=== PATIENT | male | born 1935 | race Caucasian/White ===

== ENCOUNTER 2017-05-05 13:26 | Inpatient (IN) | payer MEDICARE, BC ==
[~2017-05-05] VITALS: Ht 170.2 cm; Wt 69.6 kg
--- NOTE | ~2017-05-05 | HP ---
ADMIT: 05/05/2017 RM/LOC: 3 [facility] MR#: [id number] [address] [place] [id number] MEY CORTEZ [address] [facility] [address] [place] [address] History and Physical SEX: M AGE: 81 : 1935 DATE OF SERVICE: CHIEF COMPLAINT: Left humerus fracture. HISTORY OF PRESENT ILLNESS: Patient is an 81-year-old male who was transferred to [place] with a left pathologic humerus fracture. He is an 81- year-old male, he has been having some intermittent left arm pain with weightlifting. Today, he was actually wringing out some towels, felt a snap in the left arm. He went to the ER, was found to have a left midshaft humerus fracture. No other history of trauma. He was sent here for definitive care and treatment. He has history of some melanoma on his face, but no other known cancers. He does take Eliquis for an anticoagulant, has some underlying diabetes. PAST MEDICAL HISTORY: Include hypercholesterolemia, hypothyroidism, diabetes. MEDICATIONS: Include: 1. Hydrochlorothiazide. 2. Lovastatin. 3. Omeprazole. 4. Potassium. 5. Amlodipine. 6. Calcium. 7. Vitamin B12. 8. Eliquis. 9. Glyburide. ALLERGIES: NONE. SOCIAL HISTORY: Lives at home. REVIEW OF SYSTEMS: Negative. PHYSICAL EXAMINATION: GENERAL: Healthy-appearing male, he has minimal swelling in the left midshaft humeral area. His radial nerve was presently intact. Good pulses in the arm. No pain in the shoulder, elbow, or forearm. No pain in the right upper extremity. No pain in the pelvis or lower extremity ADMIT: 05/05/2017 RM/LOC: 3 [facility] MR#: [id number] [address] [facility] [address] [place], [place] [address] MEY CORTEZ [address] [facility] [address] [place] [address] History and Physical SEX: M AGE: 81 : 1935 with weight bearing. No other abnormalities. DIAGNOSTIC DATA: X-rays; AP, lateral, shows a midshaft humerus fracture with centralized lytic lesion eroding through the cortex. IMPRESSION: Left pathologic midshaft humerus fracture. PLAN: At this point, he is on Eliquis. We have to hold his Eliquis. We need to do cancer workup. Primary care seen. For now, we will get a whole body bone scan to rule out any other type of mets. We had a CT chest, abdomen, pelvis to look for any type of lesions. Plan on proceeding with surgery on Wednesday. Kain Davis MD/ abi JOB #: [id number] CC: Kain Davis, Attending Physician Kain Davis, Family Physician
--- NOTE | 2017-05-07 16:29 | CO ---
ADMIT: 05/05/2017 RM/LOC: 523 [facility] MR#: [id number] [address] [facility] [address] [place], [place] [address] MEY CORTEZ [address] [facility] 8 [place] [address] Consultation SEX: M AGE: 81 : 1935 DATE OF CONSULTATION: 05/05/2017 ATTENDING PHYSICIAN: Kain Davis CONSULTING PHYSICIAN: Quinton Childs MD HISTORY OF PRESENT ILLNESS: Mr. 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 He was admitted to Orthopedic Surgery with a plan for intramedullary caroline placement and bone biopsy on Wednesday. Our team was consulted to assist with medical management and malignancy workup/evaluation given likely malignant involvement of the bone. In regard to the pathologic fracture of the left humerus, he states that he was washing a truck and wringing a towel earlier today when he "just felt his arm snap." Regarding this gentleman's past medical history, he has a longstanding history of Crohn disease. He has had numerous resections in the past which he thinks has mostly involved his colon. He had his last colonoscopy 3 years ago at age 78 in [place] with the [facility]. Per his report, colonoscopy was "normal." He follows with PCP, Dr. Rene Mckeon in [place], [place]. States he is up-to-date on his healthcare screenings. States he has had normal prostate exams and PSAs over the years per his report. In regard to his history of melanoma, he states that the melanoma was excised, and he gets frequent skin checks which have been normal. In regard to his Crohn disease, he takes mesalamine 4 times a day and has chronic diarrhea. His diabetes is controlled with glimepiride. Overall, the patient tells me that he has been feeling well. He notes weight loss which he states is mostly intentional. He is unable to quantify the amount of weight he has lost. He overall felt well until he fractured his arm today, had no real complaints. PAST MEDICAL HISTORY: 1. Hypertension. 2. GERD. 3. 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 4. History of necrotizing pancreatitis secondary to obstructing gallstone in 2008. 5. Malignant melanoma of the right cheek s/p excision. 6. Crohn's disease. 7. Vitamin B12 deficiency. 8. Atrial fibrillation, on Eliquis. PAST SURGICAL HISTORY: 1. Cholecystectomy in 2008. ADMIT: 05/05/2017 RM/LOC: 523 [facility] MR#: [id number] [address] [place] [id number] MEY CORTEZ [address] [place] [address] Consultation SEX: M AGE: 81 : 1935 2. Numerous bowel resections (the patient is unable to specify details). First bowel resection was in 1983 and last bowel resection was approximately 15 years ago. 3. Excision of malignant melanoma. 4. Removal of pilonidal cyst in 1954. MEDICATIONS: 1. Hydrochlorothiazide 25 mg daily. 2. Omeprazole 20 mg daily. 3. Losartan 100 mg daily. 4. Potassium chloride 20 mEq twice daily. 5. Amlodipine 10 mg a day. 6. Calcium plus vitamin D 600 mg. 7. Mesalamine SA 1000 mg four times daily. 8. Fish oil 1000 mg per day. 9. Eliquis 5 mg twice daily. 10.Glimepiride 1 mg daily. 11.Vitamin D3, 2000 units daily. ALLERGIES: NO KNOWN DRUG ALLERGIES. SOCIAL HISTORY: Was for approximately 55 years. His 11 years ago. He had 4 children, 2 of which are living. He is accompanied by his sons today. Previous smoker, smoked approximately 5 cigars daily for many years, but quit 25 years ago. Former tobacco chewer. He is a . 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 He lives in [place], [place] at the [facility] [place]Note 2]. He is relatively independent in his activities of daily living. FAMILY MEDICAL HISTORY: Noncontributory. REVIEW OF SYSTEMS: Significant for diarrhea, weight loss. Negative for hematochezia, hematuria, melena, cough, fevers, chills, shortness of breath, chest pain, abdominal pain, or lower extremity edema. Remainder of the 10- point review of systems is negative except as mentioned above. PHYSICAL EXAMINATION: VITAL SIGNS: T: 98.5 F, P: 76 RR 18, BP 160/79, and SpO2 98% on room air. GENERAL: Alert and oriented x3, in no acute distress, holding left arm which is in a sling. Accompanied by 2 sons. HEENT: PERRLA. Extraocular muscles intact. Mucous membranes moist. No oral lesions. NECK: No cervical or supraclavicular lymphadenopathy. No masses appreciated in the neck. RESPIRATORY: Clear to auscultation bilaterally. Breathing comfortably on room air. CV: Irregularly irregular, normal rate. No murmurs, rubs, or gallops. ADMIT: 05/05/2017 RM/LOC: 523 [facility] MR#: [id number] [address] [id number] MEY CORTEZ [address] [place] [address] Consultation SEX: M AGE: 81 : 1935 Pulses 2+. ABDOMEN: Mildly distended, numerous scars, soft, nontender. Positive bowel sounds. No rebound. No masses appreciated on palpation. EXTREMITIES: No lower extremity edema. SKIN: No rashes or obvious skin lesions. NEUROLOGIC: Cranial nerves II through XII grossly intact. No focal deficits noted. Sensation intact diffusely. LABORATORY DATA: The following labs have been ordered but no result yet. CMP, CBC with differential, magnesium, phosphorus, vitamin B12 with folate, TSH, free T4, PT, INR, hemoglobin A1c, UA, SPEP and serum free light chains, and PSA. IMAGIN. X-ray, left humerus: Please see report for details, but briefly, demonstrates pathologic fracture of the left midshaft humerus. 2. Chest, abdomen, and pelvis CT with IV and oral contrast: Pending at this time. 3. Nuclear medicine bone scan: Ordered for tomorrow. ASSESSMENT AND PLAN: This is a very pleasant 81-year-old male who presented with a pathologic left humerus fracture. He was admitted to the Orthopedic Surgery Service under Dr. Davis. Plan is for CT chest, abdomen, and pelvis and bone scan to start the cancer workup. Will hold anticoagulation with a plan for intramedullary caroline and bone biopsy on 05/07/2017. [facility] was consulted to assist with medical management. 1. Pathologic fracture, left humerus. We will hold Eliquis. Chest, abdomen, and pelvis CT scan with IV and oral contrast today to evaluate for potential malignancies. Will give 1 L of IV fluids prior to CT. Nuclear medicine bone scan tomorrow. Pain, nausea, bowels per Ortho order set. Labs as mentioned above. NPO on , 05/06/2017 for OR on 05/07/2017. 2. Permanent atrial fibrillation, on Eliquis. Heart rate is currently controlled. Holding anticoagulation. On Telemetry. 3. Hypertension. Will hold hydrochlorothiazide and losartan. Continue amlodipine 10 mg. 4. History of necrotizing gallstone pancreatitis, status post cholecystectomy. 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 We will schedule Accu-Cheks a.c. and at bedtime. We will hold glimepiride while inpatient. We will monitor glucose and consider sliding scale insulin if hyperglycemia is observed. 5. Crohn disease, s/p numerous surgical resections. We will continue mesalamine while inpatient. We will obtain B12 and folate. ADMIT: 05/05/2017 RM/LOC: 523 [facility] MR#: [id number] [address] [id number] MEY CORTEZ [address] [place] [address] Consultation SEX: M AGE: 81 : 1935 DIET: General diet. CODE STATUS: Full code (discussed with sons at bedside). MONITORING: Telemetry. DISPOSITION: To OR on Wednesday. Thank you for this interesting consult. [facility] will continue to follow along while inpatient. Familia Duncan DO Resident / Quinton Childs MD / abi JOB #: [id number] CC: Kain Davis, Attending Physician Kain Davis, Family Physician
--- NOTE | 2017-05-10 07:15 | OR ---
ADMIT: 05/05/2017 RM/LOC: 523 [facility] MR#: [id number] [facility]#: [id number] [address] [place] [address] [place], [place] [address] MEY CORTEZ [address] [facility] 8 [place] [address] Operative/Delivery Room Report SEX: M AGE: 81 : 1935 SURGERY DATE: 05/07/2017 SURGEON: Kain Davis MD PREOPERATIVE DIAGNOSIS: Left pathologic humerus fracture. POSTOPERATIVE DIAGNOSIS: Left pathologic humerus fracture. PROCEDURES: 1. Left humeral IM nail. 2. Left open humeral shaft biopsy. LIP CUTTER: SHARMAINE Jon COMPLICATIONS: None. BLOOD LOSS: 25 mL. COMPONENTS: A Synthes 9 mm x 250 mm nail. DESCRIPTION OF PROCEDURE: The patient taken to the operating room, placed in a semi beach position. Humeral x-rays were obtained for preop planning. At that point, the shoulder was prepped and draped in standard fashion. Incision made off the anterolateral border of the acromion. Dissection carried through subcutaneous tissue. We split the deltoid fibers. Once we split the deltoid fibers, there was a chronic, fairly large rotator cuff tear with a fairly bald humeral head. We placed a guide pin off the articular margin down the medullary canal. At that point, we confirmed pin placement with fluoroscopy. We then opened up the proximal humerus with a drill. Then we placed a long guidewire across the fracture into the distal humerus. At that point, measured our caroline to 250 mm. Then used a 9 mm x 250 mm Synthes nail, placed it down into the medullary canal. As we pushed the nail down, there was some bone marrow come out the tip of the caroline, which we sent to Pathology as marrow aspirates. At that point, through our same proximal incision, confirmed the depth, placement of our caroline. Placed a guide pin into the center of humeral head on AP and lateral images. We then elected to use a spiral blade in the proximal humerus, reamed the lateral cortex and impacted the spiral blade into the proximal humerus with excellent purchase. We then placed a neutral locking bolt proximally. At that point, AP and axillary images confirmed good placement of the spiral blade. We then went distally. Using fluoroscopy, found 2 perfect circles on the distal caroline and placed 2 distal locking bolts. No ADMIT: 05/05/2017 RM/LOC: 523 [facility] MR#: [id number] [address] [address] MEY CORTEZ [address] [place] [address] Operative/Delivery Room Report SEX: M AGE: 81 : 1935 undue difficulty with fluoroscopic guidance and a radiolucent drill. At that point, we still did not have definite pathology confirmation. We made an incision over the pathologic fracture, carried dissection to subcutaneous tissue. Went through one of the bone defects. Obtained multiple tissue biopsies out of the medullary canal. We sent these to Pathology for definitive diagnosis. Then we irrigated out the wound with pathologic site. Closed deep tissue with 0 Vicryl, subcu with 2-0 Vicryl, tony in the skin. We then repaired our deltoid split with 0 Vicryl, subcu 2-0 Vicryl, tony in the skin. Closed our distal incision with 2-0 Vicryl and tony. Applied sterile dressings to the arm. He was placed in an arm sling for support. He was taken to recovery room in stable condition with no complications. Kain Davis MD/ abi JOB #: [id number] CC: Kain Davis, Attending Physician Kain Davis, Family Physician
[2017-05-11] MEDS ORDERED: PENTASA250 MG PO (15:22)
[2017-05-11] MEDS ORDERED: NORVASC DPS10 MG PO ×2 (15:22→15:26)
[2017-05-11] MEDS ORDERED: PROTONIX40 MG PO (15:22)
[2017-05-11] MEDS ORDERED: BENADRYL-DPS25 MG PO (15:23)
[2017-05-11] MEDS ORDERED: FLU VACCINE IM (15:23)
[2017-05-11] MEDS ORDERED: SENOKOT-S TABL1 EACH PO (15:23)
[2017-05-11] MEDS ORDERED: COMPAZINE DPS5 MG PO (15:23)
[2017-05-11] MEDS ORDERED: TYLENOL DPS325 MG PO (15:24)
[2017-05-11] MEDS ORDERED: MAALOX DPS30 ML PO (15:24)
[2017-05-11] MEDS ORDERED: HYDROCODON-ACE1 EAC6 PO (15:24)
[2017-05-11] MEDS ORDERED: MILK OF MAGNESI10 ML PO (15:24)
[2017-05-11] MEDS ORDERED: DULCOLAX-DPS10 MG PR (15:25)
[2017-05-11] MEDS ORDERED: FLEET ENEMA133 ML PR (15:25)
[2017-05-11] MEDS ORDERED: PRILOSEC DPS20 MG PO (15:25)
[2017-05-11] MEDS ORDERED: COZAAR DPS50 MG PO (15:26)
[2017-05-11] MEDS ORDERED: CALCIUM 600 +1 EAC7 PO (15:27)
[2017-05-11] MEDS ORDERED: VITAMIN B-121000 MCG PO (15:27)
[2017-05-11] MEDS ORDERED: PENTASA500 MG PO (15:27)
[2017-05-11] MEDS ORDERED: ELIQUIS5 MG PO (15:28)
[2017-05-11] MEDS ORDERED: VITAMIN D-32000 UNI1 PO (15:29)
[2017-05-11] MEDS ORDERED: AMARYL1 MG PO (15:29)
== END 2017-05-10 13:56 | DRG 478 ==
LOC: 5MS 13:26 → WER 13:26 → 5MS 13:35
PROVIDERS: ADMIT Orthopaedic Surgery
DX: M84.422A Pathological fracture, left humerus, initial encounter for fracture (principal); K50.90 Crohn's disease, unspecified, without complications; I48.2 Chronic atrial fibrillation; E11.9 Type 2 diabetes mellitus without complications; E03.9 Hypothyroidism, unspecified; I10 Essential (primary) hypertension; K21.9 Gastro-esophageal reflux disease without esophagitis; E78.00 Pure hypercholesterolemia, unspecified; Z85.820 Personal history of malignant melanoma of skin; Z79.01 Long term (current) use of anticoagulants; Z79.84 Long term (current) use of oral hypoglycemic drugs; Z87.891 Personal history of nicotine dependence